=== PATIENT | female | born 1995 | race African-American/Black ===

== ENCOUNTER 2016-10-12 20:46 | Emergency (ER) | payer OTHER ==
[~2016-10-12] VITALS: Ht 157.5 cm; Wt 62.1 kg
[~2016-10-12 20:46] MED LIST: IBUPROFEN 600600 M1 PO; NOHOMEMEDICATIONS; TRAMADOL 50 MG50 MG PO
[2016-10-12] MEDS ORDERED: PROAIR HFA8.5 GM INH (21:28)
[2016-10-12 21:45] VITALS: BP 136/78
== END 2016-10-12 21:45 | disposition home or self-care (01) ==
LOC: ER 20:46
DX: J45.901 Unspecified asthma with (acute) exacerbation (principal); Z88.1 Allergy status to other antibiotic agents

== ENCOUNTER 2017-10-18 10:44 | Emergency (ER) | payer OTHER ==
[~2017-10-18] VITALS: Ht 157.5 cm; Wt 58.1 kg
[~2017-10-18 10:44] MED LIST changes: +CLEOCIN HCL150 MG PO; +MOBIC7.5 MG PO; +PROAIR HFA8.5 GM INH
[2017-10-18 11:25] LABS: ABSOLUTE NEUTROPHILS 0.9 thou/uL (1.4-8.2); BASOPHILS 1.2 % (0.0-2.0); EOSINOPHILS 3.3 % (0.0-3.0); HEMATOCRIT 37.4 % (37.0-47.0); HEMOGLOBIN 12.8 gm/dL (12.0-15.0); LYMPHOCYTES 57.9 % (24.0-44.0); MCH 31.5 pg (26.0-34.0); MCHC 34.1 g/dL (28.0-37.0); MCV 92.3 fL (80.0-100.0); MONOCYTES 8.3 % (1.0-8.0); PLATELET COUNT 266 thou/uL (150-400); POLYS 29.3 % (36.0-66.0); RBC 4.05 mil/uL (4.20-5.00); RDW 12.2 % (10.5-14.5); WBC 3.1 thou/uL (4.0-11.0)
[2017-10-18 11:25] LABS: URINE BILIRUBIN NEGATIVE (Negative); URINE BLOOD NEGATIVE (Negative); URINE CLARITY CLEAR; URINE COLOR YELLOW; URINE GLUCOSE-RANDOM* NEGATIVE (Negative); URINE KETONES NEGATIVE (Negative); URINE LEUKOCYTES-REFLEX NEGATIVE (Negative); URINE NITRITE-REFLEX NEGATIVE (Negative); URINE PROTEIN (DIPSTICK) NEGATIVE (Negative); URINE SPECIFIC GRAVITY <= 1.005 (1.005-1.035); URINE UROBILINOGEN 0.2 E.U./dl (0.2-1.0)
[2017-10-18 11:35] LABS: CALCIUM 9.6 mg/dL (8.5-10.1); CREATININE 0.9 mg/dL (0.6-1.0); POTASSIUM 3.5 mmol/L (3.5-5.1)
[2017-10-18 11:40] LABS: ALBUMIN 4.2 g/dL (3.4-5.0); TOTAL BILIRUBIN 0.9 mg/dL (<0.1-1.0); TOTAL PROTEIN 7.6 g/dL (6.4-8.2)
[2017-10-18] MEDS ORDERED: OMEPRAZOLE20 M1 PO (11:54)
[2017-10-18] MEDS ORDERED: ZOFRAN4 MG PO (11:54)
[2017-10-18 12:36] VITALS: BP 110/56
== END 2017-10-18 12:37 | disposition home or self-care (01) ==
LOC: ER 10:44
PROVIDERS: Emergency Medicine
DX: R10.12 Left upper quadrant pain (principal); R11.2 Nausea with vomiting, unspecified; J45.909 Unspecified asthma, uncomplicated

== ENCOUNTER 2018-01-02 12:28 | Emergency (ER) | payer OTHER ==
[~2018-01-02] VITALS: Ht 157.5 cm; Wt 54.4 kg
[~2018-01-02 12:28] MED LIST changes: +OMEPRAZOLE20 M1 PO; +ZOFRAN4 MG PO
[2018-01-02 12:38] VITALS: BP 129/87
[2018-01-02 12:59] LABS: URINE BILIRUBIN NEGATIVE (Negative); URINE BLOOD 2+ (Negative); URINE CLARITY CLEAR; URINE COLOR YELLOW; URINE GLUCOSE-RANDOM* NEGATIVE (Negative); URINE KETONES NEGATIVE (Negative); URINE LEUKOCYTES-REFLEX NEGATIVE (Negative); URINE NITRITE-REFLEX NEGATIVE (Negative); URINE PROTEIN (DIPSTICK) NEGATIVE (Negative); URINE SPECIFIC GRAVITY <= 1.005 (1.005-1.035); URINE UROBILINOGEN 0.2 E.U./dl (0.2-1.0)
[2018-01-02 13:13] LABS: BACTERIA-REFLEX None Seen /HPF (None Seen); CASTS None Seen /LPF (None Seen); CRYSTALS None Seen /LPF (None Seen); SQUAMOUS 0-3 Few /LPF (0-3); URINE RBC 0-2 Rare /HPF (0-2); URINE WBC-REFLEX None Seen /HPF (0-5)
== END 2018-01-02 13:36 | disposition home or self-care (01) ==
LOC: ER 12:28
PROVIDERS: Emergency Medicine
DX: R10.9 Unspecified abdominal pain (principal); J45.909 Unspecified asthma, uncomplicated